=== PATIENT | female | born 1945 | race Caucasian/White ===

== ENCOUNTER 2020-08-19 17:15 | Emergency (ER) | payer OTHER ==
[2020-08-20 11:07] LABS: SARS-CoV-2 NAA Not Detected (Not Detected)
== END 2020-08-19 17:39 | disposition home or self-care (01) ==
LOC: JVIRT 17:15
DX: Z11.52 Encounter for screening for COVID-19 (principal)
CPT/HCPCS: C9803; G2251-GT; U0003; U0005

== ENCOUNTER 2021-08-08 08:28 | Observation (INO) | payer OTHER ==
[2021-08-08] MEDS ORDERED: MECLIZINE HCL 25 MG TABLET (FP) PO ONE (09:10)
[2021-08-08 09:44] LABS: EOS % 4.5 % (0-4.5); HEMATOCRIT 39.9 % (32.4-45.2); HEMOGLOBIN 13.2 GM/dL (10.7-15.3); LYMPH % 23.2 % (8-40); MCH 29.4 pg (25.7-33.7); MCHC 33.2 g/dl (32.0-36.0); MEAN CELL VOLUME 88.4 fl (80-96); MEAN PLT VOLUME 8.8 fl (7.5-11.1); MONO % 6.9 % (3.8-10.2); NEUT % 64.4 % (42.8-82.8); PLATELET COUNT 157 10^3/uL (134-434); RBC 4.51 M/mm3 (3.60-5.2); RDW 15.5 % (11.6-15.6); WHITE BLOOD COUNT 4.4 K/mm3 (4.0-10.0)
[2021-08-08] MEDS ORDERED: MECLIZINE HCL 25 MG TABLET (FP) ONE (09:55)
[2021-08-08 10:48] LABS: ALBUMIN 3.2 g/dl (3.4-5.0); BLOOD UREA NITROGEN 12.6 mg/dL (7-18); CALCIUM 9.2 mg/dL (8.5-10.1); MAGNESIUM 2.1 mg/dL (1.8-2.4)
[2021-08-08 10:51] LABS: CREATININE 1.1 mg/dL (0.55-1.3)
[2021-08-08 10:53] LABS: BILIRUBIN,TOTAL 0.7 mg/dL (0.2-1); TOT PROT 7.7 g/dl (6.4-8.2)
[2021-08-08 11:45] LABS: EPI CELLS 4 /uL (0-25.1); HYALINE CASTS 3 /uL (0-3.1); PH,URINE 6.5 (5.0-8.0); URINE APPEARANCE CLEAR; URINE BACTERIA >9,000 /uL (0-1359); URINE BILIRUBIN NEGATIVE (NEGATIVE); URINE COLOR YELLOW; URINE GLUCOSE (UA) NEGATIVE (NEGATIVE); URINE KETONE NEGATIVE (NEGATIVE); URINE LEUK ESTERASE 1+ (NEGATIVE); URINE NITRITE POSITIVE (NEGATIVE); URINE PROTEIN TRACE (NEGATIVE); URINE RBC 16 /uL (0-23.9); URINE UROBILINOGEN 0.2 mg/dL (0.2-1.0); URINE WBC 166 /uL (0-25.8)
[2021-08-08] MEDS ORDERED: SODIUM CHLORIDE 0.9% 1000 ML INFUS.BAG IV ONE (11:58)
[2021-08-08] MEDS ORDERED: CEFTRIAXONE 1 GM in DEXTROSE 5%-WATER - 100 ML IVPB ONE (12:28)
[2021-08-08] MEDS ORDERED: ACETAMINOPHEN 325 MG TABLET (FP) PO PRN (13:11)
[2021-08-08] MEDS ORDERED: CEFTRIAXONE 1 GM/50 ML BAG ONE (13:23)
[2021-08-08 15:01] VITALS: BMI 32.5
[2021-08-08] MEDS: METOPROLOL TARTRATE 25 MG TABLET (FP) PO SCH ×2 (15:10→21:14)
[2021-08-08] MEDS: ENALAPRIL MALEATE 5 MG TABLET PO SCH (15:10)
[2021-08-08] MEDS: HEPARIN NA (PORCINE) 5,000 UNITS/ML 1ML VIAL SQ SCH (21:14)
[2021-08-09] MEDS ORDERED: hydrALAZINE HCL 10 MG TABLET PO ONE (03:38)
[2021-08-09] MEDS: LEVOTHYROXINE NA 75 MCG TABLET (FP) PO SCH (06:05)
[2021-08-09 08:50] LABS: BASO % 0.7 % (0-2.0); EOS % 3.2 % (0-4.5); HEMATOCRIT 39.1 % (32.4-45.2); HEMOGLOBIN 12.8 GM/dL (10.7-15.3); LYMPH % 29.8 % (8-40); MCH 29.2 pg (25.7-33.7); MCHC 32.8 g/dl (32.0-36.0); MEAN PLT VOLUME 10.4 fl (7.5-11.1); MONO % 7.7 % (3.8-10.2); NEUT % 58.6 % (42.8-82.8); PLATELET COUNT 167 10^3/uL (134-434); RBC 4.39 M/mm3 (3.60-5.2); RDW 15.4 % (11.6-15.6); WHITE BLOOD COUNT 6.3 K/mm3 (4.0-10.0)
[2021-08-09 09:07] LABS: CHOLESTEROL 189 mg/dL (50-200); TRIGLYCERIDES 148 mg/dL (0-150)
[2021-08-09 09:08] LABS: LDL CHOLESTEROL (ONLY SJRH) 117 mg/dL (5-100)
[2021-08-09 09:09] LABS: CALCIUM 9.3 mg/dL (8.5-10.1)
[2021-08-09 09:10] LABS: ALBUMIN 3.1 g/dl (3.4-5.0); BLOOD UREA NITROGEN 15.5 mg/dL (7-18)
[2021-08-09 09:11] LABS: BILIRUBIN,TOTAL 0.6 mg/dL (0.2-1); HDL CHOLESTEROL 44 mg/dL (40-60); TOT PROT 7.3 g/dl (6.4-8.2)
[2021-08-09] MEDS ORDERED: cefTRIAXone SODIUM 1 GM VIAL ONE (10:05)
[2021-08-09] MEDS ORDERED: DEXTROSE 5%-WATER - 50 ML IVPB ONE (10:06)
[2021-08-09] MEDS: CEFTRIAXONE 1 GM in DEXTROSE 5%-WATER - 50 ML IVPB SCH (10:07)
[2021-08-09] MEDS: ASPIRIN 81 MG CHEWABLE TABLETS PO SCH (10:07)
[2021-08-09] MEDS: HEPARIN NA (PORCINE) 5,000 UNITS/ML 1ML VIAL SQ SCH ×2 (10:07→21:17)
[2021-08-09] MEDS: METOPROLOL TARTRATE 25 MG TABLET (FP) PO SCH ×2 (10:07→21:17)
[2021-08-09] MEDS: ENALAPRIL MALEATE 5 MG TABLET PO SCH (10:08)
[2021-08-10] MEDS: LEVOTHYROXINE NA 75 MCG TABLET (FP) PO SCH (06:07)
[2021-08-10 07:46] LABS: BASO % 1.3 % (0-2.0); EOS % 4.3 % (0-4.5); HEMATOCRIT 39.9 % (32.4-45.2); HEMOGLOBIN 13.3 GM/dL (10.7-15.3); MCH 29.5 pg (25.7-33.7); MCHC 33.2 g/dl (32.0-36.0); MEAN CELL VOLUME 88.7 fl (80-96); MEAN PLT VOLUME 10.2 fl (7.5-11.1); MONO % 6.8 % (3.8-10.2); NEUT % 54.6 % (42.8-82.8); PLATELET COUNT 148 10^3/uL (134-434); RDW 15.9 % (11.6-15.6); WHITE BLOOD COUNT 6.4 K/mm3 (4.0-10.0)
[2021-08-10 08:09] LABS: CALCIUM 9.1 mg/dL (8.5-10.1); MAGNESIUM 2.3 mg/dL (1.8-2.4)
[2021-08-10 08:11] LABS: ALBUMIN 3.1 g/dl (3.4-5.0)
[2021-08-10 08:12] LABS: PHOSPHOROUS 4.3 mg/dL (2.5-4.9)
[2021-08-10 08:14] LABS: BILIRUBIN,DIRECT 0.2 mg/dL (0.0-0.2); BLOOD UREA NITROGEN 18.1 mg/dL (7-18)
[2021-08-10 08:16] LABS: BILIRUBIN,TOTAL 0.6 mg/dL (0.2-1); TOT PROT 7.6 g/dl (6.4-8.2)
[2021-08-10] MEDS ORDERED: cefTRIAXone SODIUM 1 GM VIAL ONE (09:25)
[2021-08-10] MEDS ORDERED: DEXTROSE 5%-WATER - 50 ML IVPB ONE (09:26)
[2021-08-10] MEDS: METOPROLOL TARTRATE 25 MG TABLET (FP) PO SCH ×2 (09:41→21:32)
[2021-08-10] MEDS: ENALAPRIL MALEATE 5 MG TABLET PO SCH (09:41)
[2021-08-10] MEDS: ASPIRIN 81 MG CHEWABLE TABLETS PO SCH (09:41)
[2021-08-10] MEDS: CEFTRIAXONE 1 GM in DEXTROSE 5%-WATER - 50 ML IVPB SCH (09:41)
[2021-08-10] MEDS: HEPARIN NA (PORCINE) 5,000 UNITS/ML 1ML VIAL SQ SCH ×2 (09:41→21:32)
[2021-08-11] MEDS: LEVOTHYROXINE NA 75 MCG TABLET (FP) PO SCH (06:06)
[2021-08-11 06:31] VITALS: BP 153/86; PULSE 58; TEMP 97.8
[2021-08-11] MEDS ORDERED: CEPHALEXIN MONOHYDRATE 500 MG CAPSULE (UD) PO SCH (10:00)
== END 2021-08-11 10:51 | disposition home or self-care (01) ==
LOC: JER 08:28 → INTOOBSV 11:06 → JERBED 11:06 → UNDOADMOB 11:06 → JERBED 13:11 → J4S 14:28
PROVIDERS: ADMIT Internal Medicine; ATTEND Internal Medicine
PROC: 3E03329 Introduction of Other Anti-infective into Peripheral Vein, Percutaneous Approach (ICD-10-PCS; principal; 2021-08-08)
PROC: 3E023GC Introduction of Other Therapeutic Substance into Muscle, Percutaneous Approach (ICD-10-PCS; 2021-08-08)
PROC: 3E0337Z Introduction of Electrolytic and Water Balance Substance into Peripheral Vein, Percutaneous Approach (ICD-10-PCS; 2021-08-08)
DX: N39.0 Urinary tract infection, site not specified (principal); R42 Dizziness and giddiness; E11.9 Type 2 diabetes mellitus without complications; I10 Essential (primary) hypertension; E03.9 Hypothyroidism, unspecified; K04.7 Periapical abscess without sinus; Z88.0 Allergy status to penicillin; E66.9 Obesity, unspecified; Z68.32 Body mass index [BMI] 32.0-32.9, adult; R79.89 Other specified abnormal findings of blood chemistry
CPT/HCPCS: 36415; 70450-TC; 70551-TC; 71045-TC-FY; 80048; 80053; 80061; 80076; 81003; 82397; 82607; 82962; 83735; 84100; 84443; 84484; 85025; 87086; 87186; 93005; 93010; 96365; 96366; 96372; 97116-GP; 97161-GP; 99285-25; C9803-CS; G0378; J1644; U0003; U0005